=== PATIENT | female | born 1995 | race Two or more races ===

== ENCOUNTER 2024-11-20 17:50 | Emergency (ER) | payer OTHER ==
[~2024-11-20] VITALS: Ht 165.1 cm; Wt 63.5 kg
[2024-11-20] MEDS ORDERED: KETOROLAC TROMETHAMINE 60 MG VIAL IM ONE ×2 (20:15→20:53)
[2024-11-20] MEDS ORDERED: IBUPROFEN800 MG PO (23:24)
== END 2024-11-20 23:58 | disposition home or self-care (01) ==
LOC: ER 17:50
DX: W10.0XXA Fall (on)(from) escalator, initial encounter (principal); S89.81XA Other specified injuries of right lower leg, initial encounter; Y93.89 Activity, other specified; Y92.89 Other specified places as the place of occurrence of the external cause; S59.801A Other specified injuries of right elbow, initial encounter; Z88.2 Allergy status to sulfonamides